=== PATIENT | male | born 1985 | race Caucasian/White ===

== ENCOUNTER 2017-04-29 14:22 | Emergency (ER) | payer MEDICAID, OTHER ==
[2017-04-29 14:28] VITALS: BP 130/80; PULSE 86; RESP 14; TEMP 98.8; O2SAT 98
[2017-04-29] MEDS ORDERED: IBUPROFEN 600 MG TAB PO ONE (15:15)
--- NOTE | 2017-04-29 15:45 | RADRPT ---
EXAM DATE/TIME: 04/29/2017 15:19 [place] COMPARISON: No previous studies available for comparison. INDICATIONS : Right elbow pain and swelling for 2 weeks. No known injury. MEDICAL HISTORY : None. SURGICAL HISTORY : None. ENCOUNTER: Initial ACUITY: 2 weeks PAIN SCORE: 10/10 LOCATION: Right posterior elbow. FINDINGS: A standard 4 view examination of the right elbow was obtained and demonstrates normal mineralization and alignment. There are several small ossific or calcific structures along the radial head and dista l humerus seen on the lateral exam without definite evidence of a joint effusion. Soft tissues otherw ise unremarkable. CONCLUSION: 1. Several small ossific or calcific structures and soft tissues surrounding the anterior elbow. 2. No underlying bony abnormality. Foreign Gutierrez MD on April 29, 2017 at 15:41 Board Certified Radiologist. This report was verified electronically.
--- NOTE | 2017-04-29 15:51 | PD ---
HPI . Right elbow pain Chief Complaint: Pain: Acute or Chronic Time Seen by Provider: 14:55 Travel History International Travel<30 days: No Contact w/Intl Traveler<30days: No Traveled to known affect area: No History of Present Illness HPI 31-year-old male patient presents emergency department for evaluation of right elbow pain for a couple weeks. Patient denies any injuries, traumas or falls. Patient states he woke up a couple weeks ago with his right elbow swollen and painful. Patient has a fever, chills, malaise, shortness breath, chest pain, nausea, vomiting, diarrhea. Patient denies any major medical history and does not take any daily medication. PFSH Past Medical History Blood Disorders: No Cancer: No Cardiovascular Problems: No Diminished Hearing: No Gastrointestinal Disorders: No Genitourinary: No Immune Disorder: No Musculoskeletal: No Neurologic: No Psychiatric: No Respiratory: No Immunizations Current: No Past Surgical History Pacemaker: No Other Surgery: No Social History Alcohol Use: Yes (ONCE OR TWICE A MONTH) Tobacco Use: Yes (1 PPD) Substance Use: No Allergies-Medications (Allergen,Severity, Reaction): Coded Allergies: No Known Allergies (Verified , 01/16/15) Reported Meds & Prescriptions Reported Meds & Active Scripts Active No Active Prescriptions or Reported Medications Review of Systems Except as stated in HPI: all other systems reviewed are Neg Physical Exam Narrative GENERAL: Well-nourished, well-developed 31-year-old male patient in no acute distress. Nontoxic appearing. SKIN: Focused skin assessment warm/dry. HEAD: Normocephalic. Atraumatic. EYES: No scleral icterus. No injection or drainage. NECK: Supple, trachea midline. No JVD or lymphadenopathy. CARDIOVASCULAR: Regular rate and rhythm without murmurs, gallops, or rubs. Radial pulses +2 bilaterally. RESPIRATORY: Breath sounds equal bilaterally. No accessory muscle use. GASTROINTESTINAL: Abdomen soft, non-tender, nondistended. MUSCULOSKELETAL: Left elbow mildly edematous. Limited range of motion with extension, can extend to approximately 150-160 degrees. Full range of motion with flexion. Data Data Last Documented VS Vital Signs Date Time Temp Pulse Resp B/P (MAP) Pulse Ox O2 Delivery O2 Flow Rate FiO2 04/29/17 14:28 98.8 86 14 130/80 (97) 98 Orders Orders Elbow, Complete (4 Vws) (04/29/17 15:05) Ibuprofen (Motrin) (04/29/17 15:15) MDM Medical Decision Making Medical Screen Exam Complete: Yes Emergency Medical Condition: Yes Differential Diagnosis Differential diagnoses include but are not limited to effusion, bursitis, septic arthritis, elbow pain Narrative Course 31-year-old male patient presents emergency department for evaluation of right elbow pain 2 weeks. She has a fever, chills, malaise. There is no erythema surrounding the elbow although it is mildly edematous. X-ray of the right elbow ordered and pending. She was evaluated a previous facility couple weeks ago and diagnosed with bursitis. No x-ray was performed at that time. X-ray shows several small ossific or calcific structures and soft tissues surround the anterior elbow, no underlying bony abnormality. Patient discharged home with RICE therapy instructions and prednisone prescription and instructions to return to the emergency department with any worsening condition but otherwise follow up with primary care. Patient has an elbow brace he is applying before discharge. Patient will be referred to follow-up with an orthopedist. Patient has insurance and states he will follow up with orthopedist for further evaluation. Last Impressions Elbow X-Ray 04/29/17 1505 Signed Impressions: Service Date/Time: March 15:19 - CONCLUSION: 1. Several small ossific or calcific structures and soft tissues surrounding the anterior elbow. 2. No underlying bony abnormality. Foreign Gutierrez MD Diagnosis Primary Impression: Swelling of right elbow Referrals: Godfrey Ang Jr., MD Orthopedist Primary Care Physician Additional Instructions: Please return to emergency department if your symptoms return or worsen. Follow up with your primary care provider. Take medications as prescribed. Rice therapy to right elbow, rest, ice, splint with activity and elevate with resting. Med/Other Pt SpecificInfo: Prescription(s) given Scripts Prednisone (Prednisone) 20 Mg Tab 40 MG PO DAILY for 3 Days, #6 TAB 0 Refills Take 40 mg (2 tablets) daily for 5 days Prov: Rubi Lacey Bella TOLENTINO 04/29/17 Disposition: 01 DISCHARGE HOME Condition: Stable Deepthi,Rubireji TOLENTINO Apr 29, 2017 15:51
[2017-04-29] MEDS ORDERED: PRED20 PO (16:21)
== END 2017-04-29 16:41 | disposition home or self-care (01) ==
LOC: NEPK 14:22
DX: M25.421 Effusion, right elbow (principal); R07.9 Chest pain, unspecified; R50.9 Fever, unspecified; R19.7 Diarrhea, unspecified; R11.2 Nausea with vomiting, unspecified; Z72.0 Tobacco use
CPT/HCPCS: 73080; 99283